=== PATIENT | male | born 1985 | race Caucasian/White ===

== ENCOUNTER 2021-02-26 20:12 | Emergency (ER) | payer BC, MEDICAID ==
[~2021-02-26 20:12] MED LIST: AUGMENTIN TAB875 MG PO
[2021-02-26 20:35] LABS: HEMOGLOBIN 17.7 gm/dl (14.0-17.5); RED BLOOD COUNT 5.73 M/UL (4.20-5.50)
[2021-02-26 22:13] LABS: BUN/CREATININE RATIO 13 (0-10)
[2021-02-26] MEDS ORDERED: AUGMENTIN 875-1 EACH PO (23:58)
== END 2021-02-27 00:09 | disposition home or self-care (01) ==
LOC: ER1 20:12
PROVIDERS: Emergency Medicine
DX: T40.1X1A Poisoning by heroin, accidental (unintentional), initial encounter (principal); Z04.1 Encounter for examination and observation following transport accident
CPT/HCPCS: 70450; 71045; 71260; 72125; 80053; 82550; 82553; 83874; 84484; 85025; 96374; 99284; J2405; Q9967